=== PATIENT | female | born 1995 | race Two or more races ===

== ENCOUNTER 2024-05-12 07:13 | Inpatient (IN) | payer SELFPAY ==
[2024-05-12] MEDS: ELECTROLYTE-148 SOLN 1,000 ML IV SCH (07:30)
[2024-05-12] MEDS ORDERED: PROPOFOL 20 ML ONE (08:03)
[2024-05-12] MEDS ORDERED: SUCCINYLCHOLINE CHLORIDE 200 MG/10 ML SYRINGE ONE (08:03)
[2024-05-12] MEDS: ELECTROLYTE-148 SOLN 1,000 ML IV ONE (08:05)
[2024-05-12] MEDS: CITRIC ACID/SODIUM CITRATE 30 ML UNIT-DOSE CUP PO ONE (08:10)
[2024-05-12 08:13] LABS: BASO % 0.4 % (0-2.0); EOS % 1.4 % (0-4.5); HEMATOCRIT 32.6 % (32.4-45.2); HEMOGLOBIN 10.9 GM/dL (10.7-15.3); LYMPH % 36.4 % (8-40); MCH 32.4 pg (25.7-33.7); MCHC 33.3 g/dl (32.0-36.0); MEAN CELL VOLUME 97.2 fl (80-96); MEAN PLT VOLUME 11.7 fl (7.5-11.1); NEUT % 55.8 % (42.8-82.8); RBC 3.36 M/mm3 (3.60-5.2); RDW 13.7 % (11.6-15.6); WHITE BLOOD COUNT 8.2 K/mm3 (4.0-10.0)
[2024-05-12 08:15] LABS: CHLORIDE 110 mmol/L (98-107); POTASSIUM 3.9 mmol/L (3.5-5.1); SODIUM 138 mmol/L (136-145)
[2024-05-12 08:17] LABS: CALCIUM 8.3 mg/dL (8.5-10.1); INR 0.95 (0.83-1.09); PROTHROMBIN TIME (PATIENT) 10.9 SEC (9.7-13.0)
[2024-05-12 08:18] LABS: ALBUMIN 2.5 g/dl (3.4-5.0); ANION GAP 8 mmol/L (4-13); BLOOD UREA NITROGEN 8.5 mg/dL (7-18); CO2 20 mmol/L (21-32); GLUCOSE,RANDOM 91 mg/dL (74-106)
[2024-05-12 08:20] LABS: ACTIVATED PTT 28.5 SECONDS (25.2-36.5)
[2024-05-12 08:21] LABS: CREATININE 0.6 mg/dL (0.55-1.3); SGOT/AST 24 U/L (15-37); SGPT/ALT 17 U/L (13-61)
[2024-05-12 08:22] LABS: PLATELET COUNT 169 10^3/uL (134-434)
[2024-05-12 08:23] LABS: BILIRUBIN,TOTAL 0.5 mg/dL (0.2-1); TOT PROT 5.8 g/dl (6.4-8.2)
[2024-05-12 08:24] LABS: ALK PHOS 131 U/L (45-117)
[2024-05-12] MEDS ORDERED: MISOPROSTOL 200 MCG TABLET ONE (08:34)
[2024-05-12] MEDS ORDERED: LIGASURE IMPACT TP ONE (08:49)
[2024-05-12 09:29] LABS: CORD HCO3 23.5 mmHg (20-29); CORD PCO2 54.9 mmHg (30-78)
[2024-05-12 09:31] LABS: URINE AMPHETAMINES NEGATIVE (NEGATIVE)
[2024-05-12 09:32] LABS: PHENCYCLIDINE,URINE NEGATIVE (NEGATIVE); URINE BARBITURATES NEGATIVE (NEGATIVE); URINE BENZODIAZEPINES NEGATIVE (NEGATIVE)
[2024-05-12 09:32] LABS: CORD BASE EXCESS -5.7 mmol/L (0-2); CORD HCO3 20.6 mmHg (20-29); CORD PCO2 43.5 mmHg (30-78); CORD pH 7.294 (7.14-7.44)
[2024-05-12 09:33] LABS: METHADONE, UR NEGATIVE (NEGATIVE)
[2024-05-12 09:39] LABS: COCAINE, UR NEGATIVE (NEGATIVE); OPIATES, URI NEGATIVE (NEGATIVE)
[2024-05-12] MEDS ORDERED: MIDAZOLAM HCL 2 MG/2 ML SINGLE DOSE VIAL ONE ×2 (09:56→10:00)
[2024-05-12] MEDS ORDERED: morphine SULFATE/PF 1 MG/2 ML (2cc Syringe - QUVA) ONE ×3 (10:02→10:17)
[2024-05-12 10:05] LABS: HIV INTERPRETATION NEGATIVE (NEGATIVE)
[2024-05-12] MEDS ORDERED: BUPIVACAINE HCL/PF 0.5% (5MG/ML) 10 ML VIAL ONE (10:10)
[2024-05-12] MEDS: OXYTOCIN 20 UNITS in 0.9% NS 20 UNIT/1,000 ML INFUS.BAG IV SCH (10:38)
[2024-05-12] MEDS ORDERED: OXYTOCIN 20 UNITS in 0.9% NS 20 UNIT/1,000 ML INFUS.BAG IV ONE ×2 (10:40→13:56)
[2024-05-12] MEDS ORDERED: ONDANSETRON 4 MG/2 ML VIAL IVPUSH PRN (10:45)
[2024-05-12] MEDS ORDERED: METHYLERGONOVINE MALEATE 0.2 MG/1 ML AMP IM PRN (11:10)
[2024-05-12] MEDS ORDERED: ACETAMINOPHEN INJECTION 100 ML IVPB ONE (11:39)
[2024-05-12] MEDS: ACETAMINOPHEN 1000 MG/100 ML BAG IVPB ONE (11:42)
[2024-05-12 11:59] LABS: BASO % 0.1 % (0-2.0); EOS % 0.1 % (0-4.5); HEMATOCRIT 30.2 % (32.4-45.2); HEMOGLOBIN 9.9 GM/dL (10.7-15.3); MCH 29.1 pg (25.7-33.7); MCHC 32.7 g/dl (32.0-36.0); MEAN CELL VOLUME 89.1 fl (80-96); MEAN PLT VOLUME 10.2 fl (7.5-11.1); MONO % 4.3 % (3.8-10.2); NEUT % 87.5 % (42.8-82.8); PLATELET COUNT 106 10^3/uL (134-434); RBC 3.39 M/mm3 (3.60-5.2); RDW 17.7 % (11.6-15.6); WHITE BLOOD COUNT 16.5 K/mm3 (4.0-10.0)
[2024-05-12 13:41] VITALS: BMI 24.9
[2024-05-12 19:13] LABS: BASO % 0.2 % (0-2.0); EOS % 0.1 % (0-4.5); HEMATOCRIT 28.3 % (32.4-45.2); HEMOGLOBIN 9.3 GM/dL (10.7-15.3); MCH 28.9 pg (25.7-33.7); MCHC 32.7 g/dl (32.0-36.0); MEAN CELL VOLUME 88.3 fl (80-96); MEAN PLT VOLUME 10.6 fl (7.5-11.1); NEUT % 84.7 % (42.8-82.8); PLATELET COUNT 112 10^3/uL (134-434); RBC 3.21 M/mm3 (3.60-5.2); RDW 18.5 % (11.6-15.6); WHITE BLOOD COUNT 16.9 K/mm3 (4.0-10.0)
[2024-05-12] MEDS: diphenhydrAMINE HCL 25 MG CAPSULE (FP) PO PRN (20:41)
[2024-05-12] MEDS: IBUPROFEN 600 MG TABLET (FP) PO PRN (22:57)
[2024-05-13] MEDS: ACETAMINOPHEN 325 MG TABLET (FP) PO PRN (00:03)
[2024-05-13] MEDS: oxyCODONE HCL 5 MG TABLET PO PRN ×2 (09:30→21:26)
[2024-05-13 10:47] VITALS: BP 121/71; PULSE 68; RESP 18; TEMP 98.2
[2024-05-13] MEDS ORDERED: BISACODYL 10 MG SUPP.RECT RC PRN (11:11)
[2024-05-13 11:23] LABS: BASO % 0.2 % (0-2.0); EOS % 0.1 % (0-4.5); HEMATOCRIT 26.4 % (32.4-45.2); LYMPH % 8.4 % (8-40); MCH 29.7 pg (25.7-33.7); MCHC 34.1 g/dl (32.0-36.0); MEAN CELL VOLUME 87.2 fl (80-96); MEAN PLT VOLUME 10.5 fl (7.5-11.1); NEUT % 86.3 % (42.8-82.8); PLATELET COUNT 128 10^3/uL (134-434); RBC 3.03 M/mm3 (3.60-5.2); RDW 18.6 % (11.6-15.6)
[2024-05-13 11:25] LABS: BASO % 0.1 % (0-2.0); EOS % 0.1 % (0-4.5); HEMOGLOBIN 9.1 GM/dL (10.7-15.3); LYMPH % 8.2 % (8-40); MCH 29.6 pg (25.7-33.7); MCHC 33.7 g/dl (32.0-36.0); MEAN CELL VOLUME 87.9 fl (80-96); MONO % 5.1 % (3.8-10.2); NEUT % 86.5 % (42.8-82.8); PLATELET COUNT 123 10^3/uL (134-434); RBC 3.07 M/mm3 (3.60-5.2); RDW 18.6 % (11.6-15.6)
[2024-05-13] MEDS: DEXAMETHASONE 4 MG TABLET (FP) PO ONE (12:45)
[2024-05-13] MEDS: SIMETHICONE 80 MG TAB.CHEW (FP) PO PRN (21:27)
== END 2024-05-13 21:57 | disposition left against medical advice (07) | DRG 540 ==
LOC: JDEL 07:13 → JLDR 07:14 → J3W 14:10
PROVIDERS: ADMIT Obstetrics & Gynecology; ATTEND Obstetrics & Gynecology
PROC: 10D00Z1 Extraction of Products of Conception, Low, Open Approach (ICD-10-PCS; principal; 2024-05-12)
PROC: 0UT90ZZ Resection of Uterus, Open Approach (ICD-10-PCS; 2024-05-12)
PROC: 0UT70ZZ Resection of Bilateral Fallopian Tubes, Open Approach (ICD-10-PCS; 2024-05-12)
PROC: 30233N1 Transfusion of Nonautologous Red Blood Cells into Peripheral Vein, Percutaneous Approach (ICD-10-PCS; 2024-05-12)
PROC: 30233L1 Transfusion of Nonautologous Fresh Plasma into Peripheral Vein, Percutaneous Approach (ICD-10-PCS; 2024-05-12)
PROC: 30233K1 Transfusion of Nonautologous Frozen Plasma into Peripheral Vein, Percutaneous Approach (ICD-10-PCS; 2024-05-12)
DX: O60.14X0 Preterm labor third trimester with preterm delivery third trimester, not applicable or unspecified (principal); Z3A.35 35 weeks gestation of pregnancy; O34.211 Maternal care for low transverse scar from previous cesarean delivery; N85.8 Other specified noninflammatory disorders of uterus; O43.213 Placenta accreta, third trimester; O20.8 Other hemorrhage in early pregnancy; Z37.0 Single live birth
CPT/HCPCS: 36415; 36430; 36600; 59409; 80053; 80307; 82803; 85025; 85610; 85730; 86780; 86803; 86900; 86922; 87340; 87389; 88305-TC; 88307-TC; J0131; P9017; P9038; P9058

== ENCOUNTER 2024-05-27 18:04 | Emergency (ER) | payer SELFPAY ==
[2024-05-27 18:21] VITALS: BP 116/75; PULSE 82; RESP 18; TEMP 98.2; BMI 24.0
== END 2024-05-27 19:40 | disposition left against medical advice (07) ==
LOC: JER 18:04
DX: Z53.21 Procedure and treatment not carried out due to patient leaving prior to being seen by health care provider (principal)
CPT/HCPCS: 99281-25